=== PATIENT | female | born 1980 | race African-American/Black ===

== ENCOUNTER 2020-12-17 15:55 | Emergency (ER) | payer MEDICAID ==
[~2020-12-17] VITALS: Ht 172.7 cm; Wt 79.0 kg
[2020-12-17 16:28] VITALS: BP 160/91
== END 2020-12-17 19:36 | disposition left against medical advice (07) ==
LOC: ER 16:03
DX: Z53.21 Procedure and treatment not carried out due to patient leaving prior to being seen by health care provider (principal)

== ENCOUNTER 2020-12-17 20:24 | Inpatient (IN) | payer MEDICAID, OTHER ==
[~2020-12-17] VITALS: Ht 167.6 cm; Wt 85.3 kg
[2020-12-18 03:05] LABS: BASOPHILS % 0.3 % (0.0-2.0); EOSINOPHILS % 4.4 % (0.0-5.0); HEMATOCRIT. 35.5 % (36.0-48.0); LYMPHOCYTES % 48.8 % (20.0-50.0); MEAN CORPUSCULAR HEMOGLOBIN 21.9 pg (28.0-32.0); MEAN CORPUSCULAR VOLUME 70.5 fL (81.0-99.0); MEAN PLATELET VOLUME 9.6 fl (7.4-10.4); MONOCYTES % 11.6 % (2.0-8.0); NEUTROPHILS % 34.9 % (40.0-76.0); PLATELET 215 x1000/uL (130-400); RED BLOOD CELL COUNT 5.03 mill/uL (4.2-5.4); RED CELL DISTRIBUTION WIDTH 19.9 % (11.6-14.6)
[2020-12-18 03:12] LABS: CHLORIDE 106 mEq/L (98-107)
[2020-12-18 03:17] LABS: ETHANOL BLOOD < 10 mg/dL
[2020-12-18 03:37] LABS: CLARITY URINE CLEAR (CLEAR); COLOR URINE YELLOW (YELLOW); KETONES URINE 1+ (NEGATIVE); LEUKOCYTE ESTERASE URINE NEGATIVE (NEGATIVE); NITRITE URINE NEGATIVE (NEGATIVE); OCCULT BLOOD URINE NEGATIVE (NEGATIVE); PH URINE 5.5 (4.5-8.0); PROTEIN URINE NEGATIVE (NEGATIVE); SPECIFIC GRAVITY URINE 1.019 (1.005-1.030); UROBILINOGEN URINE 0.2 E.U./dL (0.2-1.0)
[2020-12-18 03:54] LABS: *AMPHETAMINES SCREEN URINE NEGATIVE (NEGATIVE)
[2020-12-18 03:55] LABS: *BARBITURATES SCREEN URINE NEGATIVE (NEGATIVE); *BENZODIAZEPINES SCREEN URINE NEGATIVE (NEGATIVE); *COCAINE SCREEN URINE NEGATIVE (NEGATIVE); CANNABINOID URINE SCREEN NEGATIVE (NEGATIVE); METHADONE URINE SCREEN NEGATIVE (NEGATIVE); OPIATES URINE SCREEN NEGATIVE (NEGATIVE); PHENCYCLIDINE URINE SCREEN NEGATIVE (NEGATIVE)
[2020-12-18] MEDS: LORAZEPAM 2MG/ML CPJ IV PRN ×2 (07:12→11:02)
[2020-12-18] MEDS ORDERED: ACETAMINOPHEN 325MG TABLET PO PRN (09:30)
[2020-12-18] MEDS ORDERED: ONDANSETRON HCL 4MG/2ML INJ IV PRN (09:30)
[2020-12-18] MEDS: ENOXAPARIN 40MG/0.4ML SYR SUBCUT SCH (11:00)
[2020-12-18] MEDS ORDERED: HALOPERIDOL LACTATE 5MG/ML VIAL IM PRN (11:15)
[2020-12-18] MEDS ORDERED: LORAZEPAM 2MG/ML CPJ IV PRN (16:56)
[2020-12-18] MEDS ORDERED: DIPHENHYDRAMINE 50MG/ML VIAL IV PRN (17:00)
[2020-12-19] VITALS (33 sets, daily range): BP systolic 62–183; BP diastolic 46–122
[2020-12-19] MEDS: ASPIRIN 81MG TABLET PO SCH (09:21)
[2020-12-19] MEDS: ENOXAPARIN 40MG/0.4ML SYR SUBCUT SCH (11:25)
[2020-12-19] MEDS: ATORVASTATIN CALCIUM 20MG TABLET PO SCH (20:22)
[2020-12-20] VITALS (11 sets, daily range): BP systolic 126–150; BP diastolic 63–82
[2020-12-20] MEDS: ASPIRIN 81MG TABLET PO SCH (08:04)
[2020-12-20] MEDS: ENOXAPARIN 40MG/0.4ML SYR SUBCUT SCH (11:18)
[2020-12-20] MEDS: ATORVASTATIN CALCIUM 20MG TABLET PO SCH (20:36)
[2020-12-21] VITALS: BP 133/82
[2020-12-21 04:00] VITALS: BP 128/77
[2020-12-21 08:00] VITALS: BP 141/80
[2020-12-21] MEDS: ASPIRIN 81MG TABLET PO SCH (08:57)
[2020-12-21] MEDS ORDERED: ATOR20TA PO (09:25)
[2020-12-21] MEDS ORDERED: ASPI-1160 PO (09:25)
[2020-12-21] MEDS ORDERED: GADOTERATE MEGLUMINE 5 MMOL/10 ML VIAL IV ONE (11:37)
[2020-12-21 11:58] VITALS: BP 133/87
[2020-12-21] MEDS: ENOXAPARIN 40MG/0.4ML SYR SUBCUT SCH (14:19)
[2020-12-21 15:05] VITALS: BP 133/87
[2020-12-23 10:09] LABS: PROTEIN C FUNCTIONAL 115 % (73-180)
== END 2020-12-21 16:00 | disposition home or self-care (01) | DRG 45 ==
LOC: ER 20:24 → UNDOADMIN 12-18 05:46 → MICUSO 12-18 05:46 → 5EST 12-19 07:24
PROVIDERS: ADMIT Internal Medicine; ATTEND Internal Medicine
DX: I63.9 Cerebral infarction, unspecified (principal); G93.41 Metabolic encephalopathy; D64.9 Anemia, unspecified; E66.9 Obesity, unspecified; I10 Essential (primary) hypertension; Z68.30 Body mass index [BMI] 30.0-30.9, adult
CPT/HCPCS: 36415; 70544; 70549; 70551; 71045; 80053; 80061; 80305; 80320; 81003; 84443; 85025; 85303; 85306; 93005; 93306; 97161; 99285; A9577; J1630; J1650; J2060; G0480